=== PATIENT | male | born 1990 | race Caucasian/White ===

== ENCOUNTER 2017-05-01 19:05 | Emergency (ER) | payer SELFPAY ==
[~2017-05-01] VITALS: Ht 177.8 cm; Wt 81.6 kg
[~2017-05-01 19:05] MED LIST: AMOXICILLIN500 M1 PO; AUGMENTIN PO; AUGMENTIN875 MG PO; DOXYCYCLINE PO; DOXYCYCLINE150 MG PO; FLEXERIL10 MG PO; FLONASE 0.05% N16 GM INH; GUAIFENESIN400 MG PO; IBUPROFEN800 MG PO; LEXAPRO PO; LORTAB ELIXIR15 ML PO; NO MEDICATIONS; PHENERGAN DM1 ML PO; ROBITUSSIN A-C-S1 ML PO; ULTRAM PO; VICODIN 5/500 T1 TAB PO; VOLTAREN75 MG PO; ZYRTEC1 MG/1 ML PO
== END 2017-05-01 20:35 | disposition home or self-care (01) ==
LOC: CED 19:05 → CFTX 19:05 → CED 19:58 → CFTX 20:35
DX: L02.413 Cutaneous abscess of right upper limb (principal); F17.210 Nicotine dependence, cigarettes, uncomplicated
CPT/HCPCS: 10060; 87070; 87077; 87205; 99282